=== PATIENT | male | born 1955 | race Caucasian/White ===

== ENCOUNTER 2022-12-17 06:54 | Day surgery (SDC) | payer OTHER ==
[~2022-12-17] VITALS: Ht 177.8 cm; Wt 86.2 kg
[2022-12-17] VITALS (9 sets, daily range): BP systolic 108–143; BP diastolic 70–93
[2022-12-17] MEDS ORDERED: AMIT25 PO (07:13)
[2022-12-17] MEDS ORDERED: ATOR40TA PO (07:13)
[2022-12-17] MEDS ORDERED: Calcium Carbon500 MG PO (07:14)
[2022-12-17] MEDS ORDERED: ZYRTEC10 M2 PO (07:14)
[2022-12-17] MEDS ORDERED: VITAMIN D5000 UNIT PO (07:15)
[2022-12-17] MEDS ORDERED: CYCL10 PO (07:16)
[2022-12-17] MEDS ORDERED: B-12500 MC2 PO (07:16)
[2022-12-17] MEDS ORDERED: FAMO20 PO (07:18)
[2022-12-17] MEDS ORDERED: JARDIANCE25 MG PO (07:18)
[2022-12-17] MEDS ORDERED: Flonase 0.05% N16 GM (07:20)
[2022-12-17] MEDS ORDERED: GLIM2 PO (07:20)
[2022-12-17] MEDS ORDERED: Norco 10-325 T1 EACH PO (07:21)
[2022-12-17] MEDS ORDERED: MAGNESIUM OXID500 MG PO (07:21)
[2022-12-17] MEDS ORDERED: MELO7.5 PO (07:21)
[2022-12-17] MEDS ORDERED: PANT20 PO (07:22)
[2022-12-17] MEDS ORDERED: ONDA4 PO (07:22)
[2022-12-17] MEDS ORDERED: METF500 PO (07:22)
[2022-12-17] MEDS ORDERED: POLYETHYLENE G500 G1 PO (07:23)
[2022-12-17] MEDS ORDERED: TAMS.4ER PO (07:24)
[2022-12-17] MEDS ORDERED: TOPI50 PO (07:24)
[2022-12-17] MEDS ORDERED: IMITREX100 MG PO (07:24)
--- NOTE | 2022-12-17 08:45 | NUR ---
PT BACK TO RECOVERY ROOM VIA RECLINER, REPORT FROM WAQAS DIALLO. RIGHT RADIAL AITE WITH TR BAND AND SPLINT IN PLACE. NO BLEEDING OR SWELLING NOTED. PT AWAKE AND ALERT, DENIES PAIN OR DISCOMFORT. PO FLUIDS GIVEN, CALL LIGHT IN REACH
--- NOTE | 2022-12-17 09:09 | NUR ---
PT EATING BREAKFAST, DENIES PAIN OR DISCOMFORT. RIGHT RADIAL SITE REMAINS SOFT AND NON-TENDER. CALL LIGHT IN REACH
--- NOTE | 2022-12-17 09:50 | NUR ---
TR BAND HAS BEEN FULLY DEFLATED, NO BLEEDING OR SWELLING NOTED AT RIGHT RADIAL SITE. CALL LIGHT IN REACH, VSS. REMAINS AT BEDSIDE.
--- NOTE | 2022-12-17 10:30 | NUR ---
IV DC'D, CATH INTACT. PT AND SPOUSE GIVEN DC INSTRUCTIONS AND FOLLOW UP INFORMATION, VERBALIZED UNDERSTANDING. TR BAND HAS BEEN REMOVED, CLOTH DOT DRESSING AND SPLINT REMAIN ON RIGHT WRIST. PT OUT TO CAR VIA WHEELCHAIR, ACCOMPANIED BY SPOUSE.
== END 2022-12-17 10:30 | disposition home or self-care (01) ==
LOC: MHTC 06:54
DX: R07.89 Other chest pain (principal); E55.9 Vitamin D deficiency, unspecified; E78.00 Pure hypercholesterolemia, unspecified
CPT/HCPCS: 76937; 93458; 99152; 99153; A9270; C1769; C1887; C1894; J1644; J2250; J3010; J7030; J7050; Q9967